=== PATIENT | female | born 1925 | race Caucasian/White ===

== ENCOUNTER 2017-01-25 14:39 | Inpatient (IN) | payer MEDICARE, OTHER ==
--- NOTE | 2017-01-25 15:32 | EDPHY ---
H & P Stated Complaint: ruq abd pain radiates into back Time Seen by Provider: 01/25/17 15:18 HPI/ROS: CHIEF COMPLAINT: Right lower chest and upper abdominal pain HISTORY OF PRESENT ILLNESS: The patient presents to the ED with a 3 day history of right lower chest and upper abdominal pain. The patient reports associated nausea. The patient has had a 1 year history of chronic mild dyspnea without an obvious etiology. She has a known hiatal hernia. The patient denies any fall or trauma. The patient has not had a history of right upper quadrant pain until the past 3 days. The patient has been taking a single tramadol each day for management of her pain. The patient reports no change in her chronic mild dyspnea. She denies asymmetric calf pain or swelling. The patient denies chest pain or shortness of breath. The patient has no history of fever, arthralgias or rash. The patient denies any prior abdominal surgical history. REVIEW OF SYSTEMS: A comprehensive 10 point review of systems is otherwise negative aside from elements mentioned in the history of present illness. Source: Patient Exam Limitations: No limitations - Personal History Current Tetanus/Diphtheria Vaccine: No - Medical/Surgical History Hx Asthma: No Hx Chronic Respiratory Disease: No Hx Diabetes: No Hx Cardiac Disease: No Hx Renal Disease: No Hx Cirrhosis: No Hx Alcoholism: No Hx HIV/AIDS: No Hx Splenectomy or Spleen Trauma: No Other PMH: arthritis - Social History Smoking Status: Never smoked - Physical Exam Exam: General Appearance: Alert, no distress Eyes: Pupils equal and round no pallor or injection ENT, Mouth: Mucous membranes moist Respiratory: Tenderness to palpation right lower chest wall, no subcutaneous emphysema Cardiovascular: Regular rate and rhythm Gastrointestinal: Tenderness to palpation right upper quadrant, mild in nature , no peritoneal signs Neurological: A&O, normal motor function, normal sensory exam, normal cranial nerves Skin: Warm and dry, no rashes Musculoskeletal: Neck is supple nontender Extremities: symmetrical, full range of motion Constitutional: Initial Vital Signs Temperature (C) 36.3 C 01/25/17 14:48 Heart Rate 74 01/25/17 14:48 Respiratory Rate 16 01/25/17 14:48 Blood Pressure 134/83 H 01/25/17 14:48 O2 Sat (%) 92 01/25/17 14:48 O2 Delivery Mode Room Air Allergies/Adverse Reactions: Penicillins Allergy (Verified 01/25/17 14:46) Sulfa (Sulfonamide Antibiotics) Allergy (Verified 01/25/17 14:46) Home Medications: Medication Instructions Recorded Atenolol [Tenormin 25 mg (*)] 25 mg PO DAILY 01/25/17 Bimatoprost 0.01% [Lumigan 0.01% 1 drop EACHEYE HS 01/25/17 (*)] Fluticasone Nasal [Flonase Nasal 1 spray NASAL DAILY PRN 01/25/17 Momence] Fluticasone/Vilanterol [Breo 1 puffs IH DAILY 01/25/17 Ellipta 100-25 Mcg INH] Levothyroxine Sodium 100 mcg PO DAILY06 01/25/17 [Levothyroxine Sodium] Simvastatin [Simvastatin] 10 mg PO HS 01/25/17 Valsartan [Valsartan] 80 mg PO DAILY@17 01/25/17 Vit A/Vit C/Vit E/Zinc/Copper 1 each PO DAILY 01/25/17 [Preservision Tablet] traMADol [Ultram 50 mg (*)] 50 mg PO DAILY PRN 01/25/17 Medical Decision Making - Diagnostics EKG Interpretation: EKG: Complete interpretation has been separately recorded in the [facility] archive. Summary impression: Sinus rhythm, rate 70 Imaging Results: Imaging Impressions Chest X-Ray 01/25/17 15:29 Impression: 1. Large hiatal hernia. 2. Eventration right hemidiaphragm with adjacent compressive atelectatic change suspected. Abdomen Ultrasound 01/25/17 16:36 Impression: 1. Distended gallbladder with gallstones as well as dilated common bile duct with distal choledocholithiasis. The patient is also tender over the gallbladder. Findings are suspicious for cholecystitis as well. 2. Incidental right renal cysts. Findings discussed with Gibson Peguero at 18:11 hour, 01/25/2017. Chest/Thorax CTA 01/25/17 16:37 Impression: 1. No evidence of pulmonary embolus using CT protocol. 2. Aberrant right subclavian artery. 3. Calcified granuloma right lower lobe with calcified right hilar nodes. 4. Distended gallbladder. 5. Large hiatal hernia. Findings discussed with Gibson Peguero at 1812 hour, 01/25/2017. ED Course/Re-evaluation: The patient presents the ED for evaluation of 3 days of right upper quadrant pain. The patient is also had a 1 year history of dyspnea which has been poorly characterized and attributed possibly to a hiatal hernia. Patient was noted to be quite tender right upper quadrant upon arrival. She is afebrile with stable vital signs. The patient was taken for right upper quadrant ultrasound which demonstrates evidence of cholecystitis and choledocholithiasis. The patient is noted to have an elevated bilirubin consistent with choledocholithiasis. The patient had an IV established. She was started on 1 g of IV Invanz. I consulted with Dr. Culver from General surgery. He has requested the patient be admitted to the hospitalist service with GI consultation. Consultation was made with Dr. Laguna at 6:00 p.m.. Consultation was made with Gastroenterology at 6:15 p.m.. They will see the patient tomorrow morning. The patient has had some chronic dyspnea which was evaluated with a D-dimer which was elevated. CT angiogram of the chest demonstrates no evidence of pulmonary embolism. I re-evaluated the patient at 7:20 p.m.. She continues to be normotensive, afebrile and with a normal heart rate. Differential Diagnosis: Differential diagnosis considered includes pancreatitis, cholecystitis, choledocholithiasis, pulmonary embolism, pneumonia, pleural effusion - Data Points Laboratory Results: Laboratory Results 01/25/17 15:18 01/25/17 15:18 01/25/17 01/25/17 01/25/17 15:18 15:18 15:18 WBC 15.75 10^3/uL H 10^3/uL (3.80-9.50) RBC 4.70 10^6/uL 10^6/uL (4.18-5.33) Hgb 15.4 g/dL g/dL (12.6-16.3) Hct 44.4 % % (38.0-47.0) MCV 94.5 fL fL (81.5-99.8) MCH 32.8 pg pg (27.9-34.1) MCHC 34.7 g/dL g/dL (32.4-36.7) RDW 12.5 % % (11.5-15.2) Plt Count 322 10^3/uL 10^3/uL (150-400) MPV 10.6 fL fL (8.7-11.7) Neut % (Auto) 86.4 % H % (39.3-74.2) Lymph % (Auto) 5.0 % L % (15.0-45.0) Leslie % (Auto) 7.6 % % (4.5-13.0) Eos % (Auto) 0.2 % L % (0.6-7.6) Baso % (Auto) 0.2 % L % (0.3-1.7) Nucleat RBC Rel Count 0.0 % % (0.0-0.2) Absolute Neuts (auto) 13.61 10^3/uL H 10^3/uL (1.70-6.50) Absolute Lymphs (auto) 0.79 10^3/uL L 10^3/uL (1.00-3.00) Absolute Monos (auto) 1.20 10^3/uL H 10^3/uL (0.30-0.80) Absolute Eos (auto) 0.03 10^3/uL 10^3/uL (0.03-0.40) Absolute Basos (auto) 0.03 10^3/uL 10^3/uL (0.02-0.10) Absolute Nucleated RBC 0.00 10^3/uL 10^3/uL (0-0.01) Immature Gran % 0.6 % % (0.0-1.1) Immature Gran # 0.09 10^3/uL 10^3/uL (0.00-0.10) D-Dimer 3.59 ug/mLFEU H ug/mLFEU (0.00-0.50) Sodium 139 mEq/L mEq/L (134-144) Potassium 4.0 mEq/L mEq/L (3.5-5.2) Chloride 97 mEq/L mEq/L (97-110) Carbon Dioxide 26 mEq/l mEq/l (22-31) Anion Gap 16 mEq/L mEq/L (8-16) BUN 16 mg/dL mg/dL (7-23) Creatinine 1.0 mg/dL mg/dL (0.6-1.0) Estimated GFR 52 Glucose 138 mg/dL H mg/dL (70-100) Calcium 9.2 mg/dL mg/dL (8.5-10.4) Total Bilirubin 9.8 mg/dL H mg/dL (0.1-1.4) Conjugated Bilirubin 6.9 mg/dL H mg/dL (0.0-0.5) Unconjugated Bilirubin 2.9 mg/dL H mg/dL (0.0-1.1) AST 499 IU/L H IU/L (14-46) ALT 354 IU/L H IU/L (9-52) Alkaline Phosphatase 450 IU/L H IU/L (38-126) Total Protein 6.9 g/dL g/dL (6.3-8.2) Albumin 3.6 g/dL g/dL (3.5-5.0) Lipase > 95370 IU/L H IU/L (23-300) Medications Given: Discontinued Medications Ertapenem 1 gm/ Sodium (Chloride) 100 mls @ 200 mls/hr IV EDNOW ONE PRN Reason: Protocol Stop: 01/25/17 17:56 Last Admin: 01/25/17 18:31 Dose: 100 mls Morphine Sulfate (Morphine) 2 mg IVP EDNOW ONE Stop: 01/25/17 17:07 Last Admin: 01/25/17 17:07 Dose: 2 mg Departure - Departure Disposition: [facility] ([place], [place])s Inpatient Acute Clinical Impression: Choledocholithiasis, Cholecystitis, Pancreatitis Condition: Good
[2017-01-25 15:34] LABS: PLATELET COUNT 322 10^3/uL (150-400)
--- NOTE | 2017-01-25 15:46 | CPEKG ---
Heart Rate: 70 RR Interval: 857 P-R Interval: 168 QRSD Interval: 86 QT Interval: 416 QTC Interval: 449 P [place]: 51 QRS [place]: -32 T Wave [place]: 48 EKG Severity - ABNORMAL ECG - EKG Impression: SINUS RHYTHM EKG Impression: PROBABLE LEFT ATRIAL ABNORMALITY EKG Impression: LEFT AXIS DEVIATION EKG Impression: LEFT VENTRICULAR HYPERTROPHY Electronically Signed By: Gibson Peguero 25-Jan-2017 15:46:32
[2017-01-25] MEDS ORDERED: IOPAMIDOL (ISOVUE 370) 100 ML BTL IV ONE (17:03)
[2017-01-25] MEDS ORDERED: ERTAPENEM 1 GM in NS 100 ML IV ONE (17:27)
[2017-01-25] MEDS ORDERED: ONDANSETRON 4 MG/2 ML VIAL IVP PRN (19:30)
[2017-01-25] MEDS ORDERED: ACETAMINOPHEN 650 MG SUPP PR PRN (19:30)
[2017-01-25] MEDS ORDERED: NS 1,000 ML IV SCH (19:30)
[2017-01-25] MEDS ORDERED: FLUTICASONE NASAL 120 SPRAYS/16 GM MDI EACHNARE PRN (19:32)
[2017-01-25] MEDS ORDERED: PRAVASTATIN SODIUM 20 MG TAB PO SCH (21:00)
[2017-01-25] MEDS: BIMATOPROST 0.01% 2.5 ML OPHT.BTL EACHEYE SCH (22:01)
--- NOTE | 2017-01-25 22:52 | GHP ---
[f rep st] HISTORY AND PHYSICAL DATE OF ADMISSION: 01/25/2017 CHIEF COMPLAINT: Abdominal pain. HISTORY OF PRESENT ILLNESS: An 89-year-old female with a history of osteoarthritis, hypertension, hy perlipidemia and hypothyroidism, who presents with 3 days of intermittent right upper quadrant and ep igastric pain that she honestly thought was related to her ribs on the right until it became more per sistent and very severe. She did have some associated nausea today, the day of presentation, and has had some anorexia related to the discomfort. She does report in the past potentially having little episodes of what she described as potentially minimal rib pain in the past, never thinking much of it . The patient denies any subjective fevers or chills at home. Denies any diarrhea. Has a bladder s ling. Denies dysuria, denies hematuria, denies lower extremity edema. PAST MEDICAL HISTORY: 1. Osteoarthritis involving multiple joints. 2. Suspected gout. 3. Hypertension. 4. Hyperlipidemia. 5. Hypothyroidism. SOCIAL HISTORY: Patient lives independently. 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 Does not drink alcohol, illicit drugs or smoke tobacco. ADVANCE DIRECTIVES: She wishes to be full cor, full tube. Her daughter would be her medical decisio n maker. REVIEW OF SYSTEMS: A 10-point review of systems is negative with the exception of that reported in t he HPI. PHYSICAL EXAMINATION: VITAL SIGNS: Blood pressure 143/64, heart rate 72, respiratory rate 16, 91% o n room air, 36.5. GENERAL: This is a well-appearing elderly female, lying flat in bed. HEENT: Not able for moist mucous membranes. Eye exam is negative for any icterus. CARDIAC: Patient is regular rate and rhythm. PULMONARY: Clear to auscultation bilaterally, however, limited respiratory effort secondary to abdominal pain. GASTROINTESTINAL: Positive bowel sounds. Abdomen is soft. She is te nder to palpation in the right upper and epigastric area. No rebound or guarding. MUSCULOSKELETAL: Negative for any lower extremity edema. SKIN: Negative for any rashes. NEUROLOGIC: She is alert and oriented x3. PSYCHIATRIC: She is pleasant and cooperative on interview and examination. DATA: White count 15.7, hematocrit 44.4, platelets of 322. D-dimer 3.59. Glucose 138, total biliru bin 9.8, AST 499, ALT 354, alkaline phosphatase of 452. Creatinine 1.0. Ultrasound of the abdomen s hows distended gallbladder with gallstones as well as a dilated common bile duct with distal choledoc holithiasis. CTA of the chest, which I personally reviewed and interpreted, shows no pulmonary embol ism. Large hiatal hernia. EKG, which I personally reviewed and interpreted, shows sinus rhythm, lef t axis deviation, normal intervals. No acute ST-T changes. ASSESSMENT AND PLAN: This is an 89-year-old female presenting with abdominal pain. 1. Acute gallstone pancreatitis. Patient's lipase is greater than 20,000. There are stones visuali zed in the distended common bile duct. The patient is being admitted, made n.p.o., IV fluids are tayo ng initiated. Both Gastroenterology and General Surgery have been consulted. She will undergo ERCP in the morning and surgical consultation for cholecystectomy afterward. The patient is requiring IV pain medications for control. We will continue these in the inpatient setting. 2. Cholecystitis. Patient has an acute leukocytosis, common bile duct obstruction. She was given e rtapenem in the emergency department which will continue with her hospitalization. 3. Hypertension. Continue patient's home medications of valsartan and atenolol. 4. Hypothyroidism. Will continue her levothyroxine. 5. Hyperlipidemia. We will continue her pravastatin. 6. Prophylaxis. We will hold Lovenox in anticipation of ERCP tomorrow. Place SCDs. 7. Diet. N.p.o. with IV fluids. DISPOSITION: I expect greater than 2 midnights as the patient is nearly 89 years old presenting with acute gallstone pancreatitis and cholecystitis. I have discussed the case with the emergency room kurtis go. Patient will be triaged to the medical-surgical floor for care, GI consultation, IV antibi otics and pain medications. /[id number]/MODL
[2017-01-26 04:35] LABS: PLATELET COUNT 238 10^3/uL (150-400)
[2017-01-26] MEDS: LEVOTHYROXINE 100 MCG TAB PO SCH ×2 (04:39→08:00)
[2017-01-26] MEDS: ATENOLOL 25 MG TAB PO SCH (08:00)
[2017-01-26] MEDS: PRESERVISION AREDS2 FORMULA EYE VIT 1 EACH PO SCH (08:00)
--- NOTE | 2017-01-26 08:02 | PDMN ---
Medical Necessity Medical necessity: est los>2mn for acute gallstone pancreatitis with lipase >20, 000, and cholecystitis; requires ERCP, surgical and GI consults, IV pain meds, and IV abx; comorbid advanced age, htn, hld; per order and H&P 01/25/17
[2017-01-26] MEDS ORDERED: Fluticasone/Vilanterol [Breo Ellipta 100-25 Mcg Inh] IH SCH (09:00)
--- NOTE | 2017-01-26 09:19 | HOSPPROG ---
Hospitalist Progress Note Assessment/Plan: Gallstone pancreatitis - LFT's trending down. Personally reviewed and interpreted U/S which shows 3 stones in distal CBD with 10 mm dilatation. Discussed with GI, who will consult today regarding need for ERCP. Holding off for now to let pancreas cool off. -cont NPO, IVF's -GI to consult today re possible ERCP vs MRCP to see if she passes the stones Cholecystitis - will need cholecystectomy once recovered from above -surgery consulted -cont ertapenem -BCx's pending Hypertension - normotensive -hold atenolol for now to prevent hypotension in setting of acute infection with risk for sepsis Hyperlipidemia - hold statin with elevated LFT's Hypothyroid - cont LT4 Full code DVT PPLX - high risk, JULISSA Dispo - cont inpt Subjective: Pt feels better. Denies pain. Notes several year h/o what sounds like recurring biliary colic. No fevers. No N/V. Objective: Vital Signs Temp Pulse Resp BP Pulse Ox 36.4 C 68 16 130/59 H 92 01/26/17 08:00 01/26/17 08:00 01/26/17 08:00 01/26/17 08:00 01/26/17 08:00 Laboratory Results 01/26/17 04:23 01/26/17 04:23 - Physical Exam Constitutional: no apparent distress Eyes: PERRL Ears, Nose, Mouth, Throat: moist mucous membranes Cardiovascular: regular rate and rhythym Respiratory: no respiratory distress, clear to auscultation Gastrointestinal: normoactive bowel sounds, soft, non-tender abdomen Skin: warm Musculoskeletal: full muscle strength Neurologic: AAOx3 Psychiatric: interacting appropriately ICD10 Worksheet Patient Problems: Problems Problem Status Onset Cholecystitis Acute Choledocholithiasis Acute Pancreatitis Acute
[2017-01-26] MEDS ORDERED: NS W/ 20 KCl/L 1,000 ML IV SCH (09:30)
--- NOTE | 2017-01-26 12:43 | ASMTCMCOM ---
CM Note CM Note Notes: Chart reviewed. Per therapies, she is independent. She is to be seen per GI. May need ERCP. Needs TBD. CM to follow. Date Signed: 01/26/2017 12:42 PM Electronically Signed By:Yennifer Swenson RN
[2017-01-26] MEDS ORDERED: D5W 1/2 NS W/ 20 KCl/L 1,000 ML IV SCH (13:45)
--- NOTE | 2017-01-26 14:05 | GCON ---
[f rep st] CONSULTATION GI INPATIENT CONSULTATION DATE OF CONSULTATION: 01/26/2017 REFERRING PHYSICIAN: Jacklyn Weller MD CHIEF COMPLAINT: I was kindly requested to see the patient by Dr. Jacklyn Weller in consultation for a chief complaint of abnormal liver tests. HISTORY OF PRESENT ILLNESS: She is an 89-year-old white female, who presented to the hospital after 3 days of upper abdominal pain, with some nausea. Over the last year, she has had some episodes of right upper quadrant discomfort. She denies fever, rash. She denies weight loss. Workup included liver function tests, showing an AST of 499, ALT of 354, an alkaline phosphatase of 450 and a total bilirubin 9.8. Ultrasound showed a distended gallbladder with gallstones, and dilated common bile duct to 10 mm with 3 common bile duct stones seen. Today, she is feeling better, now without almost any pain whatsoever. Her liver tests have improved, but are still elevated. PAST MEDICAL HISTORY: 1. As above. 2. Thyroid disorder. 3. Elevated lipids. 4. Otherwise noncontributory. ALLERGIES: Include penicillin and sulfa. INPATIENT MEDICATIONS: Include Invanz, Synthroid, IV fluids, Diovan, statin, atenolol. SOCIAL HISTORY: Negative for alcohol abuse. Her daughter's mobile number is ( [phone]. FAMILY HISTORY: Negative for similar abdominal pain. REVIEW OF SYSTEMS: Positive pertinent review of systems as per my HPI. Otherwise, complete review of systems is negative. PHYSICAL EXAM: CONSTITUTIONAL: Nontoxic-appearing, pleasant woman. VITAL SIGNS: Stable. SKIN: Warm, dry. EYES: Pupils equal, round, and reactive to light and accommodation. EAR, NOSE, MOUTH AND THROAT: Oropharynx without masses, moist mucosa. GASTROINTESTINAL: Essentially no tenderness now. No masses felt. CARDIOVASCULAR: Normal S2, normal PMI. RESPIRATORY: Lungs clear to auscultation and percussion anteriorly. PSYCHIATRIC: Orientation, insight appropriate. NEUROLOGIC: Grossly nonfocal, cranial nerves grossly intact. MUSCULOSKELETAL: Strength grossly normal throughout, normal station. LABORATORIES: Include the above. CT angiogram showed a large hiatal hernia. White count initially 15.7 thousand, but now normal. Lipase on admission yesterday greater than 20,000. Normal electrolytes. Today, total bilirubin 5.4 , AST 220, ALT 230 and alkaline phosphatase 318. ASSESSMENT: Gallstone pancreatitis. Now, doing better, essentially pain-free. Although her liver tests have improved, with the fact that 3 filling defects were seen within her common bile duct on ultrasound, I doubt she will pass all of her common bile duct stones. PLAN: 1. Gentle clear liquids today, as she is now pain-free. 2. We will check her coags, and recheck her lipase tomorrow. 3. ERCP tomorrow. Certainly, with her age, thyroid disorder, elevated lipids, etc., she is at increased risk for this procedure. However, suspected benefits outweigh the risks, and suspect she would do well. 4. Recommend a surgical consultation, as I suspect she will need a laparoscopic cholecystectomy at some point. As per the hospitalist service. Thank you for allowing me to help in the management of this patient. /[id number]/MODL MTDD
[2017-01-26] MEDS ORDERED: ERTAPENEM 1 GM in NS 100 ML IV SCH (18:00)
[2017-01-26] MEDS: VALSARTAN 80 MG TAB PO SCH (18:09)
--- NOTE | 2017-01-26 19:42 | PDGENHP ---
History & Physical Chief Complaint: ABDOMINAL PAIN AND NAUSEA History of Present Illness: 89-YEAR-OLD FEMALE WHO PRESENTED WITH PROGRESSIVE ABDOMINAL PAIN AND NAUSEA. FOUND IN THE ER TO HAVE CHOLELITHIASIS AND CHOLEDOCHOLITHIASIS AND MARKEDLY ELEVATED LFTS WITH A BILIRUBIN OF 9.8. SHE ALSO HAS A LIPASE OF 20,000. NO HISTORY OF TRAUMA Pertinent Past, Social, Family History: PAST MEDICAL HISTORY: HYPERTENSION, HYPERLIPIDEMIA, VAGINAL HYSTERECTOMY. FAMILY HISTORY NONCONTRIBUTORY. REVIEW OF SYSTEMS NEGATIVE ON A FULL 10 POINT REVIEW OF SYSTEMS EXCEPT RELATED TO THE HPI. SHE SPECIFICALLY DOES NOT SMOKE. MEDICATIONS SEE LIST. ALLERGIES: PENICILLIN AND SULFA Relevant Physical Exam: GENERAL: DELIGHTFUL HEALTHY-APPEARING 89-YEAR-OLD FEMALE IN NO ACUTE DISTRESS, AFEBRILE. CHEST CLEAR AND SYMMETRIC. COR REGULAR RHYTHM. ABDOMEN: SOFT SLIGHTLY TENDER IN THE RIGHT UPPER QUADRANT WITH BOWEL SOUNDS AND NO MASSES AND NO HERNIAS. EXTREMITIES FULL RANGE OF MOTION FULL PULSES. NEUROLOGIC EXAM IS PHYSIOLOGIC. SKIN IS INTACT. HEENT: DESPITE ELEVATED BILIRUBIN SHE IS NOT APPEAR TO BE JAUNDICED, NO ADENOPATHY COMMON HIS NECK IS SUPPLE, NO THYROMEGALY Cardiorespiratory Assessment: IMPRESSION: GALLSTONE PANCREATITIS WITH CHOLEDOCHOLITHIASIS. PLAN: GI CONSULT FOR ERCP FOLLOWED WITH LAPAROSCOPIC CHOLECYSTECTOMY. RISKS AND OPTIONS BEEN FULLY DISCUSSED WITH THE PATIENT AND SHE WISHES TO PROCEED
[2017-01-26] MEDS: BIMATOPROST 0.01% 2.5 ML OPHT.BTL EACHEYE SCH (21:32)
[2017-01-27] MEDS: LEVOTHYROXINE 100 MCG TAB PO SCH (04:37)
[2017-01-27] MEDS ORDERED: hydrALAZINE 20 MG/ML VIAL IVP PRN (04:44)
[2017-01-27 05:17] LABS: INR 1.02 (0.83-1.16); PROTIME(PATIENT) 13.3 SEC (12.0-15.0)
[2017-01-27] MEDS: Fluticasone/Vilanterol [Breo Ellipta 100-25 Mcg Inh] IH SCH (09:41)
[2017-01-27] MEDS: ATENOLOL 25 MG TAB PO SCH (09:57)
[2017-01-27] MEDS: PRESERVISION AREDS2 FORMULA EYE VIT 1 EACH PO SCH (09:58)
--- NOTE | 2017-01-27 11:20 | HOSPPROG ---
Hospitalist Progress Note Assessment/Plan: Gallstone pancreatitis - LFT's trending down. Personally reviewed and interpreted U/S which shows 3 stones in distal CBD with 10 mm dilatation. Discussed with GI, who plans for ERCP today, pt NPO. -cont NPO, IVF's -ERCP today Cholecystitis - will need cholecystectomy once recovered from above -can de-escalate atbx from ertapenem to ceftriaxone / flagyl -surgery consulted and is following -BCx's not drawn on admission, will obtain now Hypertension - BP's up -cont outpt atenolol, losartan -prn hydralazine Hyperlipidemia - hold statin with elevated LFT's Hypothyroid - cont LT4 Full code DVT PPLX - high risk, JULISSA Dispo - cont inpt Subjective: Pt feels okay, no pain. No N/V. No fevers. She is NPO for procedure today. Objective: Vital Signs Temp Pulse Resp BP Pulse Ox 36.4 C 82 18 169/81 H 94 01/27/17 08:00 01/27/17 09:57 01/27/17 08:00 01/27/17 09:57 01/27/17 08:00 Laboratory Results 01/27/17 04:19 01/27/17 04:19 01/26/17 01/27/17 01/28/17 05:59 05:59 05:59 Intake Total 1450 Balance 1450 PT 13.3 SEC (12.0-15.0) 01/27/17 04:19 INR 1.02 (0.83-1.16) 01/27/17 04:19 - Physical Exam Constitutional: no apparent distress Eyes: PERRL Ears, Nose, Mouth, Throat: moist mucous membranes Cardiovascular: regular rate and rhythym, no murmur, rub, or gallop Respiratory: no respiratory distress, clear to auscultation Gastrointestinal: normoactive bowel sounds, soft, non-tender abdomen Skin: warm Musculoskeletal: full muscle strength Neurologic: AAOx3 Psychiatric: interacting appropriately ICD10 Worksheet Patient Problems: Problems Problem Status Onset Cholecystitis Acute Choledocholithiasis Acute Pancreatitis Acute
[2017-01-27] MEDS ORDERED: GLUCAGON HCL 1 MG VIAL ONE (13:04)
[2017-01-27] MEDS ORDERED: IOTHALAMATE MEG (CONRAY) 50 ML VIAL IV ONE ×2 (13:06→14:41)
--- NOTE | 2017-01-27 13:35 | PDANEPAE ---
ANE History of Present Illness ercp ANE Past Medical History - Cardiovascular History Hx Hypertension: Yes Hx Arrhythmias: No Hx Chest Pain: No Hx Coronary Artery / Peripheral Vascular Disease: No Hx CHF / Valvular Disease: Yes - Pulmonary History Hx COPD: No Hx Asthma/Reactive Airway Disease: No Hx Recent Upper Respiratory Infection: No Hx Oxygen in Use at Home: Yes O2 in Use at Home (L/minute): 2 Hx Sleep Apnea: No Sleep Apnea Screening Result - Last Documented: Negative - Neurologic History Hx Cerebrovascular Accident: No Hx Seizures: No Hx Dementia: No - Endocrine History Hx Diabetes: No - Renal History Hx Renal Disorders: No - Liver History Hx Hepatic Disorders: No - Chronic Pain History Chronic Pain: No ANE Review of Systems Review of Systems: - Exercise capacity METS (RN): 3 METS ANE Patient History - Allergies Allergies/Adverse Reactions: Penicillins Allergy (Verified 01/25/17 14:46) Sulfa (Sulfonamide Antibiotics) Allergy (Verified 01/25/17 14:46) - Home Medications Home Medications: Atenolol [Tenormin 25 mg (*)] 25 mg PO DAILY 01/25/17 [Last Taken 01/25/17] Bimatoprost 0.01% [Lumigan 0.01% (*)] 1 drop EACHEYE HS 01/25/17 [Last Taken 07/07] Fluticasone Nasal [Flonase Nasal [place]] 1 spray NASAL DAILY PRN 01/25/17 [Last Taken Unknown] Fluticasone/Vilanterol [Breo Ellipta 100-25 Mcg INH] 1 puffs IH DAILY 01/25/17 [ Last Taken 01/25/17] Levothyroxine Sodium [Levothyroxine Sodium] 100 mcg PO DAILY06 01/25/17 [Last Taken 01/25/17] Simvastatin [Simvastatin] 10 mg PO HS 01/25/17 [Last Taken 01/24/17] Valsartan [Valsartan] 80 mg PO DAILY@17 01/25/17 [Last Taken 01/24/17] Vit A/Vit C/Vit E/Zinc/Copper [Preservision Tablet] 1 each PO DAILY 01/25/17 [ Last Taken 01/25/17] traMADol [Ultram 50 mg (*)] 50 mg PO DAILY PRN 01/25/17 [Last Taken 01/25/17] - NPO status NPO Since - Liquids (Date): 01/27/17 NPO Since - Liquids (Time): 00:00 NPO Since - Solids (Date): 01/27/17 NPO Since - Solids (Time): 00:00 - Anes Hx Anes Hx: post operative nausea and vomiting - Smoking Hx Smoking Status: Never smoked ANE Labs/Vital Signs - Labs Result Diagrams: 01/27/17 04:19 01/27/17 04:19 - Vital Signs Blood Pressure: 182/75 Heart Rate: 85 Respiratory Rate: 16 O2 Sat (%): 93 Height: 154.94 cm Weight: 68.039 kg ANE Physical Exam - Airway Mallampati Score: Class 2 Mouth exam: normal dental/mouth exam - Pulmonary Pulmonary: no respiratory distress - Cardiovascular Cardiovascular: regular rate and rhythym - ASA Status ASA Status: II ANE Anesthesia Plan Anesthesia Plan: general endotracheal anesthesia
[2017-01-27] MEDS ORDERED: fentaNYL 100 MCG/2 ML INJ ONE (13:37)
[2017-01-27] MEDS ORDERED: ROCURONIUM 50 MG/5 ML VIAL ONE (13:37)
[2017-01-27] MEDS ORDERED: DEXAMETHASONE 4 MG/ML VIAL ONE (13:37)
[2017-01-27] MEDS ORDERED: LIDOCAINE 2% 5 ML SDV ONE (13:37)
[2017-01-27] MEDS ORDERED: METOPROLOL TARTRATE 5 MG/5 ML INJ ONE (14:12)
[2017-01-27] MEDS ORDERED: SUGAMMADEX SODIUM 200 MG/2 ML VIAL IVP ONE (15:09)
[2017-01-27] MEDS ORDERED: INDOMETHACIN 50 MG SUPP PR ONE ×2 (15:19→15:24)
[2017-01-27] MEDS ORDERED: ALBUTEROL 3 ML DEYVIAL IH PRN (15:40)
[2017-01-27] MEDS ORDERED: NALOXONE HCL 0.4 MG/ML INJ IVP PRN (15:40)
[2017-01-27] MEDS ORDERED: fentaNYL 100 MCG/2 ML INJ IVP PRN (15:40)
[2017-01-27] MEDS ORDERED: ONDANSETRON 4 MG/2 ML VIAL IVP PRN (15:40)
--- NOTE | 2017-01-27 15:41 | POSTANESTH ---
Post Anesthetic Evaluation Cardiovascular Status: Normal, Stable Respiratory Status: Normal, Stable Level of Consciousness/Mental Status: Can Participate in Eval Pain Control: Adequate, Prn Tx Ordered Nausea/Vomiting Control: Adequate, Prn Tx Ordered Complications Possibly Related to Anesthesia: None Noted
--- NOTE | 2017-01-27 16:02 | GIREPORT ---
Formerly [facility], [facility] Surgical Services - Endoscopy Department Patient Name: Dari Pro Procedure Date: 01/27/2017 1:31 PM Patient Type: Inpatient Attending MD/ ER Physician: Beny Culp MD Procedure: ERCP Indications: Suspected bile duct stone(s) Providers: Beny Culp MD Referring MD: Jesse Culver MD; Hospitalist [facility] [place], [place]; Pascual Salas MD Medicines: Sedation Administered by an Anesthesia Professional Complications: No immediate complications. Description of Procedure: After obtaining informed consent, the scope was passed under direct vis ion. Throughout the procedure, the patient's blood pressure, pulse, and oxyg en saturations were monitored continuously. The Endoscope was introduced through the mouth, and advanced to the duodenum and used to inject cont rast into the bile duct. The Duodenalscope was introduced through the and advanced to the duodenum. Findings: Moderate H.H. Else, normal stomach. Ampulla within a diverticuli. Selective cbd cannulation achieved. Cholangiogram revealed three moderately-large stones. A 1.7 cm sphincterotomy was made at the 12 o'clock position. Then, using a 15-18 mm balloon, one stone was removed, approximately 1.2 cm in size. Then, multiple attempts were made to remove a second stone, which was l arger radiographically (with a central halo), about 1.3 cm in size. However, despite multiple balloon attempts, different angles and balloon sizes, there was too much resistance at the ampulla. At this point, the procedure had been 1.75 hours. With her age, recent pancreatitis, etc., it was elected to not pursue further therapies, suc h as basket, lithotripsy, etc., as with this, and then needing to remove her third stone, the risk seemed to high. Therefore, a 10 Fr 7 cm long bili priya stent was placed. Estimated Blood Loss: Estimated blood loss: none. Post Op Diagnosis: Three large cbd stones, as above. One removed, but the second too large for removal using a balloon, despite multiple attempts (see above). Recommendation: - for lap rossana - We will leave the stent in for six weeks, and begin Actigall. With th e latter, and the stone "banging" against the stent for six weeks, suspec t it will soften and fragment. As an outpt. in six weeks, we will then repea t her ERCP, removing the stent, and then suspect we can more safely remove th e two remaining stones. Until then, the stent will protect her cbd from block age. I will sign off. Upon discharge, please have her use Actigall 600 mg p. o. daily. We will arrange her repeat outpt. ERCP. Else, please call if we can be of further help [phone]). Thank you for allowing me to help in the management of this patient. Attending Participation: I personally performed the entire procedure. Suni Swan MD Beny Culp MD 01/27/2017 4:02:23 PM This report has been signed electronicallyPeter MD Suni Number of Addenda: 0 Note Initiated On: 01/27/2017 1:31 PM Total Procedure Duration Time 1 hour 19 minutes 10 seconds [email or web address]
--- NOTE | 2017-01-27 16:02 | GIREPORT ---
[facility] Surgical Services - Endoscopy Department Patient Name: Dari Pro Procedure Date: 01/27/2017 1:31 PM Patient Type: Inpatient Attending MD/ ER Physician: Beny Culp MD Procedure: ERCP Indications: Suspected bile duct stone(s) Providers: Beny Culp MD Referring MD: Jesse Culver MD; Hospitalist [facility] [place]; Pascual Salas MD Medicines: Sedation Administered by an Anesthesia Professional Complications: No immediate complications. Description of Procedure: After obtaining informed consent, the scope was passed under direct vis ion. Throughout the procedure, the patient's blood pressure, pulse, and oxyg en saturations were monitored continuously. The Endoscope was introduced through the mouth, and advanced to the duodenum and used to inject cont rast into the bile duct. The Duodenalscope was introduced through the and advanced to the duodenum. Findings: Moderate H.H. Else, normal stomach. Ampulla within a diverticuli. Selective cbd cannulation achieved. Cholangiogram revealed three moderately-large stones. A 1.7 cm sphincterotomy was made at the 12 o'clock position. Then, using a 15-18 mm balloon, one stone was removed, approximately 1.2 cm in size. Then, multiple attempts were made to remove a second stone, which was l arger radiographically (with a central halo), about 1.3 cm in size. However, despite multiple balloon attempts, different angles and balloon sizes, there was too much resistance at the ampulla. At this point, the procedure had been 1.75 hours. With her age, recent pancreatitis, etc., it was elected to not pursue further therapies, suc h as basket, lithotripsy, etc., as with this, and then needing to remove her third stone, the risk seemed to high. Therefore, a 10 Fr 7 cm long bili priya stent was placed. Estimated Blood Loss: Estimated blood loss: none. Post Op Diagnosis: Three large cbd stones, as above. One removed, but the second too large for removal using a balloon, despite multiple attempts (see above). Recommendation: - for lap rossana - We will leave the stent in for six weeks, and begin Actigall. With th e latter, and the stone "banging" against the stent for six weeks, suspec t it will soften and fragment. As an outpt. in six weeks, we will then repea t her ERCP, removing the stent, and then suspect we can more safely remove th e two remaining stones. Until then, the stent will protect her cbd from block age. I will sign off. Upon discharge, please have her use Actigall 600 mg p. o. daily. We will arrange her repeat outpt. ERCP. Else, please call if we can be of further help [phone]). Thank you for allowing me to help in the management of this patient. Attending Participation: I personally performed the entire procedure. Suni Swan MD Beny Culp MD 01/27/2017 4:02:23 PM This report has been signed electronicallyPeter MD Suni Number of Addenda: 0 Note Initiated On: 01/27/2017 1:31 PM Total Procedure Duration Time 1 hour 19 minutes 10 seconds [email or web address]
--- NOTE | 2017-01-27 16:02 | GIREPORT ---
[facility] Surgical Services - Endoscopy Department Patient Name: Dari Pro Procedure Date: 01/27/2017 1:31 PM Patient Type: Inpatient Attending MD/ ER Physician: Beny Culp MD Procedure: ERCP Indications: Suspected bile duct stone(s) Providers: Beny Culp MD Referring MD: Jesse Culver MD; Hospitalist [facility] [place]; Pascual Salas MD Medicines: Sedation Administered by an Anesthesia Professional Complications: No immediate complications. Description of Procedure: After obtaining informed consent, the scope was passed under direct vis ion. Throughout the procedure, the patient's blood pressure, pulse, and oxyg en saturations were monitored continuously. The Endoscope was introduced through the mouth, and advanced to the duodenum and used to inject cont rast into the bile duct. The Duodenalscope was introduced through the and advanced to the duodenum. Findings: Moderate H.H. Else, normal stomach. Ampulla within a diverticuli. Selective cbd cannulation achieved. Cholangiogram revealed three moderately-large stones. A 1.7 cm sphincterotomy was made at the 12 o'clock position. Then, using a 15-18 mm balloon, one stone was removed, approximately 1.2 cm in size. Then, multiple attempts were made to remove a second stone, which was l arger radiographically (with a central halo), about 1.3 cm in size. However, despite multiple balloon attempts, different angles and balloon sizes, there was too much resistance at the ampulla. At this point, the procedure had been 1.75 hours. With her age, recent pancreatitis, etc., it was elected to not pursue further therapies, suc h as basket, lithotripsy, etc., as with this, and then needing to remove her third stone, the risk seemed to high. Therefore, a 10 Fr 7 cm long bili priya stent was placed. Estimated Blood Loss: Estimated blood loss: none. Post Op Diagnosis: Three large cbd stones, as above. One removed, but the second too large for removal using a balloon, despite multiple attempts (see above). Recommendation: - for lap rossana - We will leave the stent in for six weeks, and begin Actigall. With th e latter, and the stone "banging" against the stent for six weeks, suspec t it will soften and fragment. As an outpt. in six weeks, we will then repea t her ERCP, removing the stent, and then suspect we can more safely remove th e two remaining stones. Until then, the stent will protect her cbd from block age. I will sign off. Upon discharge, please have her use Actigall 600 mg p. o. daily. We will arrange her repeat outpt. ERCP. Else, please call if we can be of further help [phone]). Thank you for allowing me to help in the management of this patient. Attending Participation: I personally performed the entire procedure. Suni Swan MD Beny Culp MD 01/27/2017 4:02:23 PM This report has been signed electronicallyPeter MD Suni Number of Addenda: 0 Note Initiated On: 01/27/2017 1:31 PM Total Procedure Duration Time 1 hour 19 minutes 10 seconds [email or web address]
--- NOTE | 2017-01-27 16:51 | SOAPPROG ---
SOAP Progress Note Assessment/Plan: Assessment/Plan: 89 F cholelithiasis, choledocholithiasis s/p ERCP c stent and partial stone retrieval. Patient seen s/p ERCP while in PACU. Comfortable, sleepy, with no complaints. Plan for lap rossana tomorrow. NPO p midnight. No chemical VTE ppx. Consent filled out and in chart. 01/27/17 16:49 Objective: Vital Signs Temp Pulse Resp BP Pulse Ox 36.5 C 85 16 182/75 H 93 01/27/17 16:40 01/27/17 13:35 01/27/17 13:35 01/27/17 13:35 01/27/17 13:35 Laboratory Results 01/27/17 04:19 01/27/17 04:19 01/26/17 01/27/17 01/28/17 05:59 05:59 05:59 Intake Total 1450 200 Output Total 5 Balance 1450 195 PT 13.3 SEC (12.0-15.0) 01/27/17 04:19 INR 1.02 (0.83-1.16) 01/27/17 04:19 ICD10 Worksheet Patient Problems: Problems Problem Status Onset Cholecystitis Acute Choledocholithiasis Acute Pancreatitis Acute
[2017-01-27] MEDS: VALSARTAN 80 MG TAB PO SCH (18:38)
[2017-01-27] MEDS: BIMATOPROST 0.01% 2.5 ML OPHT.BTL EACHEYE SCH (21:00)
[2017-01-28] MEDS: LEVOTHYROXINE 100 MCG TAB PO SCH (05:05)
[2017-01-28] MEDS ORDERED: ceFAZolin 1 GM/5 ML SYR ONE (07:27)
[2017-01-28] MEDS ORDERED: BUPIVACAINE 0.5% 30 ML SDV ONE (07:27)
[2017-01-28] MEDS ORDERED: HEPARIN 1000 UNIT/1 ML MDV ONE (07:27)
[2017-01-28] MEDS: ATENOLOL 25 MG TAB PO SCH (07:59)
[2017-01-28] MEDS: PRESERVISION AREDS2 FORMULA EYE VIT 1 EACH PO SCH (07:59)
[2017-01-28] MEDS: Fluticasone/Vilanterol [Breo Ellipta 100-25 Mcg Inh] IH SCH (08:44)
--- NOTE | 2017-01-28 11:46 | HOSPPROG ---
Hospitalist Progress Note Assessment/Plan: Gallstone pancreatitis - LFT's trending down. U/S with 3 stones in distal CBD with 10 mm dilatation. ERCP yesterday with 2 stones removed. However, Dr. Culp was unable to remove all the stones and due to duration of procedure a biliary stent was placed. -needs 6 week f/u with GI for repeat ERCP and stent removal Cholecystitis - NPO for cholecystectomy today per Dr. Culver -de-escalated atbx from ertapenem to ceftriaxone / flagyl, can probably d/c soon after surgery Hypertension - Fair control today. -cont outpt atenolol, losartan -prn hydralazine Hyperlipidemia - holding statin with elevated LFT's Hypothyroid - cont LT4 Diarrhea - check C diff Full code DVT PPLX - high risk, JULISSA Dispo - cont inpt Subjective: Pt doing well. No pain. No fevers. No complaints. Objective: Vital Signs Temp Pulse Resp BP Pulse Ox 36.7 C 63 14 151/65 H 95 01/28/17 11:44 01/28/17 11:44 01/28/17 11:44 01/28/17 11:44 01/28/17 11:44 Laboratory Results 01/27/17 04:19 01/28/17 04:34 01/27/17 01/28/17 01/29/17 05:59 05:59 05:59 Intake Total 1450 400 Output Total 5 100 Balance 1450 395 -100 PT 13.3 SEC (12.0-15.0) 01/27/17 04:19 INR 1.02 (0.83-1.16) 01/27/17 04:19 - Physical Exam Constitutional: no apparent distress Eyes: PERRL Ears, Nose, Mouth, Throat: moist mucous membranes Cardiovascular: regular rate and rhythym Respiratory: no respiratory distress, clear to auscultation Gastrointestinal: normoactive bowel sounds, soft, non-tender abdomen Skin: warm Musculoskeletal: full muscle strength Neurologic: AAOx3 Psychiatric: interacting appropriately ICD10 Worksheet Patient Problems: Problems Problem Status Onset Cholecystitis Acute Choledocholithiasis Acute Pancreatitis Acute
--- NOTE | 2017-01-28 12:18 | PDANEPAE ---
ANE History of Present Illness lexi rossana HANSEL Past Medical History - Cardiovascular History Hx Hypertension: Yes Hx Arrhythmias: No Hx Chest Pain: No Hx Coronary Artery / Peripheral Vascular Disease: No Hx CHF / Valvular Disease: Yes - Pulmonary History Hx COPD: No Hx Asthma/Reactive Airway Disease: No Hx Recent Upper Respiratory Infection: No Hx Oxygen in Use at Home: Yes O2 in Use at Home (L/minute): 2 Hx Sleep Apnea: No Sleep Apnea Screening Result - Last Documented: Negative - Neurologic History Hx Cerebrovascular Accident: No Hx Seizures: No Hx Dementia: No - Endocrine History Hx Diabetes: No - Renal History Hx Renal Disorders: No - Liver History Hx Hepatic Disorders: No - Chronic Pain History Chronic Pain: No ANE Review of Systems Review of Systems: - Exercise capacity METS (RN): 3 METS ANE Patient History - Allergies Allergies/Adverse Reactions: Penicillins Allergy (Verified 01/25/17 14:46) Sulfa (Sulfonamide Antibiotics) Allergy (Verified 01/25/17 14:46) - Home Medications Home Medications: Atenolol [Tenormin 25 mg (*)] 25 mg PO DAILY 01/25/17 [Last Taken 01/25/17] Bimatoprost 0.01% [Lumigan 0.01% (*)] 1 drop EACHEYE HS 01/25/17 [Last Taken 07/07] Fluticasone Nasal [Flonase Nasal [place]] 1 spray NASAL DAILY PRN 01/25/17 [Last Taken Unknown] Fluticasone/Vilanterol [Breo Ellipta 100-25 Mcg INH] 1 puffs IH DAILY 01/25/17 [ Last Taken 01/25/17] Levothyroxine Sodium [Levothyroxine Sodium] 100 mcg PO DAILY06 01/25/17 [Last Taken 01/25/17] Simvastatin [Simvastatin] 10 mg PO HS 01/25/17 [Last Taken 01/24/17] Valsartan [Valsartan] 80 mg PO DAILY@17 01/25/17 [Last Taken 01/24/17] Vit A/Vit C/Vit E/Zinc/Copper [Preservision Tablet] 1 each PO DAILY 01/25/17 [ Last Taken 01/25/17] traMADol [Ultram 50 mg (*)] 50 mg PO DAILY PRN 01/25/17 [Last Taken 01/25/17] - NPO status NPO Since - Liquids (Date): 01/28/17 NPO Since - Liquids (Time): 00:00 NPO Since - Solids (Date): 01/28/17 NPO Since - Solids (Time): 00:00 - Smoking Hx Smoking Status: Never smoked ANE Labs/Vital Signs - Labs Result Diagrams: 01/27/17 04:19 01/28/17 04:34 - Vital Signs Blood Pressure: 151/65 Heart Rate: 63 Respiratory Rate: 14 O2 Sat (%): 95 Height: 154.94 cm Weight: 68.039 kg ANE Physical Exam - Airway Mallampati Score: Class 2 Mouth exam: normal dental/mouth exam - Pulmonary Pulmonary: no respiratory distress - Cardiovascular Cardiovascular: regular rate and rhythym - ASA Status ASA Status: II ANE Anesthesia Plan Anesthesia Plan: general endotracheal anesthesia
[2017-01-28] MEDS ORDERED: LIDOCAINE 2% 5 ML SDV ONE (12:26)
[2017-01-28] MEDS ORDERED: ROCURONIUM 50 MG/5 ML VIAL ONE (12:26)
[2017-01-28] MEDS ORDERED: PROPOFOL 200 MG/20 ML VIAL ONE (12:26)
[2017-01-28] MEDS ORDERED: KETOROLAC 30 MG/1 ML SDV ONE (12:26)
[2017-01-28] MEDS ORDERED: LR 1,000 ML IV ONE (12:26)
[2017-01-28] MEDS ORDERED: ONDANSETRON 4 MG/2 ML VIAL ONE ×2 (12:26→14:10)
[2017-01-28] MEDS ORDERED: fentaNYL 100 MCG/2 ML INJ ONE ×2 (12:26→13:51)
[2017-01-28] MEDS ORDERED: DEXAMETHASONE 4 MG/ML VIAL ONE (12:26)
[2017-01-28] MEDS ORDERED: SUGAMMADEX SODIUM 200 MG/2 ML VIAL IVP ONE (12:52)
[2017-01-28] MEDS ORDERED: NALOXONE HCL 0.4 MG/ML INJ IVP PRN (13:46)
[2017-01-28] MEDS ORDERED: fentaNYL 100 MCG/2 ML INJ IVP PRN (13:46)
[2017-01-28] MEDS ORDERED: ALBUTEROL 3 ML DEYVIAL IH PRN (13:46)
--- NOTE | 2017-01-28 13:50 | POSTOPPROG ---
Post Op Note Date of Operation: 01/28/17 Surgeon: Jesse Culver General Car Supervisor Yard: Zahra Simmons Anesthesiologist: Beny Vasques Anesthesia: GET(General Endotracheal) Pre-op Diagnosis: cholelithiasis, choledocholithiasis, cholecystitis Post-op Diagnosis: same Procedure: lap rossana Findings: hydrops gallbladder with stones and adhesions Inf/Abcess present in the surg proc area at time of surgery?: Yes Depth: Organ Space EBL: 50-100 Complications: none Specimen(s): gallbladder to pathology
[2017-01-28] MEDS ORDERED: OXYCODONE/APAP 5/325 TAB ONE (14:10)
[2017-01-28] MEDS ORDERED: HYDROCODONE/APAP 5/325 TAB ONE (14:20)
[2017-01-28] MEDS: HYDROCODONE/APAP 5/325 TAB PO PRN ×2 (14:21→18:38)
[2017-01-28] MEDS: VALSARTAN 80 MG TAB PO SCH (17:45)
[2017-01-28] MEDS: BIMATOPROST 0.01% 2.5 ML OPHT.BTL EACHEYE SCH (21:53)
[2017-01-29] MEDS: HYDROCODONE/APAP 5/325 TAB PO PRN ×2 (03:27→09:38)
[2017-01-29] MEDS: LEVOTHYROXINE 100 MCG TAB PO SCH (05:32)
[2017-01-29] MEDS: Fluticasone/Vilanterol [Breo Ellipta 100-25 Mcg Inh] IH SCH (08:29)
[2017-01-29 08:39] VITALS: O2SAT 92
--- NOTE | 2017-01-29 09:03 | SOAPPROG ---
SOAP Progress Note Assessment/Plan: Assessment: 89yo female s/p lap rossana tolerating diet, minimal right flank pain when laying on that side PE Alert, comfortable, nonjaundiced Abdomen incisions clean/dry, soft nontender to palpation Plan: ok for d/c from surgery perspective saw pt with Dr Culver Pt understands needs GI follow-up 01/29/17 09:01 Objective: Vital Signs Temp Pulse Resp BP Pulse Ox 36.7 C 75 16 108/65 92 01/29/17 07:49 01/29/17 08:38 01/29/17 08:38 01/29/17 07:49 01/29/17 08:38 Laboratory Results 01/27/17 04:19 01/29/17 04:32 01/28/17 01/29/17 01/30/17 05:59 05:59 05:59 Intake Total 400 1310 100 Output Total 5 100 Balance 395 1210 100 PT 13.3 SEC (12.0-15.0) 01/27/17 04:19 INR 1.02 (0.83-1.16) 01/27/17 04:19 ICD10 Worksheet Patient Problems: Problems Problem Status Onset Cholecystitis Acute Choledocholithiasis Acute Pancreatitis Acute
[2017-01-29] MEDS: ATENOLOL 25 MG TAB PO SCH (09:38)
[2017-01-29] MEDS: PRESERVISION AREDS2 FORMULA EYE VIT 1 EACH PO SCH (10:59)
[2017-01-29 11:17] VITALS: BP 113/59; PULSE 74; RESP 18; TEMP 98.3
[2017-01-29] MEDS ORDERED: URSODIOL 300 MG CAP PO SCH (12:15)
--- NOTE | 2017-01-29 16:05 | ASMTCMCOM ---
CM Note CM Note Notes: Pt discharged home w/support of family, family will stay with her and help with ADLs. No homecare ordered, PT did not get a chance to eval. Date Signed: 01/29/2017 04:05 PM Electronically Signed By:Marisa Bahena RN
--- NOTE | 2017-01-29 20:43 | GDS ---
[f rep st] DISCHARGE SUMMARY DISCHARGE DIAGNOSES: 1. Gallstone pancreatitis. 2. Choledocholithiasis, status post endoscopic retrograde cholangiopancreatography with stent. 3. Hydrops gallbladder with adhesions, status post laparoscopic cholecystectomy. 4. Hypertension. HISTORY: The patient is an 89-year-old female, who presented with gallstone pancreatitis. She has s ignificantly elevated LFTs. She underwent ERCP and was found to have 3 stones in her common bile alvin t, and underwent ERCP where only 2 of the stones could be removed, and so a biliary stent was placed. Plan is 6 weeks' treatment with Actigall to soften it, so ERCP can be repeated in 6 weeks at which time, the stent can be removed and hopefully the remaining stones can be removed at that time. Until then, the stent will protect her from common bile duct blockage. After the ERCP, she went to surgery with Dr. Jesse Culver and had her gallbladder removed, where she was found to have hydrops gallbladder with extensive adhesions. Her initial lipase was greater than 20,000 but that did improve. Her LFTs were also significantly el evated with her initial bilirubin of 9.8, although that had come down to normal at time of discharge. Patient did remarkably well throughout all of this and is stable to go home, back to [facility]. DISCHARGE MEDICATIONS: Please see computerized record for full detailed list. New medication: Acti gall 600 mg p.o. daily. DISCHARGE INSTRUCTIONS: 1. Repeat ERCP in 6 weeks for stent and stone removal. 2. Follow up with Dr. Culver in 10 days. Greater than 30 minutes' time was spent arranging this discharge. Patient seen and examined by me on the day of discharge. /[id number]/MODL
--- NOTE | 2017-01-30 10:14 | ASDISCHSUM ---
Discharge Information Plan Status:Home with No Needs Medically Cleared to Leave: Discharge Date:01/29/2017 01:33 PM CM D/C Disposition:Home, Routine, Self-Care ADT D/C Disposition:Home, Routine, Self-Care Projected Discharge Date:01/29/2017 01:33 PM Transportation at D/C:Family Discharge Delay Reason: Follow-Up Date:01/29/2017 01:33 PM Discharge Slot: Final Diagnosis: Placement Information Patient Contact Information Contact Name:ALVIN Relationship: Address:[address] Work Phone: City:[place] Alternate Phone: [facility]/Zip Code:[place] [address] Email: Financial Information Financial Class:Medicare Advantage Plans Primary Plan Desc:[facility] ADVANTAGE PLANS Primary Plan Number:[id number] Secondary Plan Desc: Secondary Plan Number: Assessment Information LACE LACE Length of stay for Answers: 1 day current admission Acuity / Level of Care Answers: Was the patient admitted to hospital via the emergency department? Yes: Emergency dept visits in Answers: 1 last 6 months Score: 5 Date Signed: 01/26/2017 12:35 PM Electronically Signed By:Yennifer Swenson RN [facility] CM Progress Note CM Note CM Note Notes: Chart reviewed. Per therapies, she is independent. She is to be seen per GI. May need ERCP. Needs TBD. CM to follow. Date Signed: 01/26/2017 12:42 PM Electronically Signed By:Yennifer Swenson RN [facility] CM Progress Note CM Note CM Note Notes: Pt discharged home w/support of family, family will stay with her and help with ADLs. No homecare ordered, PT did not get a chance to eval. Date Signed: 01/29/2017 04:05 PM Electronically Signed By:Marisa Bahena RN Intervention Information
--- NOTE | 2017-01-30 10:14 | ASDISCHSUM ---
Discharge Information Plan Status:Home with No Needs Medically Cleared to Leave: Discharge Date:01/29/2017 01:33 PM CM D/C Disposition:Home, Routine, Self-Care ADT D/C Disposition:Home, Routine, Self-Care Projected Discharge Date:01/29/2017 01:33 PM Transportation at D/C:Family Discharge Delay Reason: Follow-Up Date:01/29/2017 01:33 PM Discharge Slot: Final Diagnosis: Placement Information Patient Contact Information Contact Name:ALVIN Relationship: Address:[address] Work Phone: City:[place] Alternate Phone: [facility]/Zip Code:[place] [address] Email: Financial Information Financial Class:Medicare Advantage Plans Primary Plan Desc:[facility] ADVANTAGE PLANS Primary Plan Number:[id number] Secondary Plan Desc: Secondary Plan Number: Assessment Information LACE LACE Length of stay for Answers: 1 day current admission Acuity / Level of Care Answers: Was the patient admitted to hospital via the emergency department? Yes: Emergency dept visits in Answers: 1 last 6 months Score: 5 Date Signed: 01/26/2017 12:35 PM Electronically Signed By:Yennifer Swenson RN [facility] CM Progress Note CM Note CM Note Notes: Chart reviewed. Per therapies, she is independent. She is to be seen per GI. May need ERCP. Needs TBD. CM to follow. Date Signed: 01/26/2017 12:42 PM Electronically Signed By:Yennifer Swenson RN [facility] CM Progress Note CM Note CM Note Notes: Pt discharged home w/support of family, family will stay with her and help with ADLs. No homecare ordered, PT did not get a chance to eval. Date Signed: 01/29/2017 04:05 PM Electronically Signed By:Marisa Bahena RN Intervention Information
--- NOTE | 2017-01-30 10:14 | ASDISCHSUM ---
Discharge Information Plan Status:Home with No Needs Medically Cleared to Leave: Discharge Date:01/29/2017 01:33 PM CM D/C Disposition:Home, Routine, Self-Care ADT D/C Disposition:Home, Routine, Self-Care Projected Discharge Date:01/29/2017 01:33 PM Transportation at D/C:Family Discharge Delay Reason: Follow-Up Date:01/29/2017 01:33 PM Discharge Slot: Final Diagnosis: Placement Information Patient Contact Information Contact Name:ALVIN Relationship: Address:[address] Work Phone: City:[place] Alternate Phone: [facility]/Zip Code:[place] [address] Email: Financial Information Financial Class:Medicare Advantage Plans Primary Plan Desc:[facility] ADVANTAGE PLANS Primary Plan Number:[id number] Secondary Plan Desc: Secondary Plan Number: Assessment Information LACE LACE Length of stay for Answers: 1 day current admission Acuity / Level of Care Answers: Was the patient admitted to hospital via the emergency department? Yes: Emergency dept visits in Answers: 1 last 6 months Score: 5 Date Signed: 01/26/2017 12:35 PM Electronically Signed By:Yennifer Swenson RN [facility] CM Progress Note CM Note CM Note Notes: Chart reviewed. Per therapies, she is independent. She is to be seen per GI. May need ERCP. Needs TBD. CM to follow. Date Signed: 01/26/2017 12:42 PM Electronically Signed By:Yennifer Swenson RN [facility] CM Progress Note CM Note CM Note Notes: Pt discharged home w/support of family, family will stay with her and help with ADLs. No homecare ordered, PT did not get a chance to eval. Date Signed: 01/29/2017 04:05 PM Electronically Signed By:Marisa Bahena RN Intervention Information
== END 2017-01-29 13:33 | disposition home or self-care (01) | DRG 417 ==
LOC: F3E 21:11
PROVIDERS: ADMIT Hospitalist; ATTEND Hospitalist
DX: K80.50 Calculus of bile duct without cholangitis or cholecystitis without obstruction (principal); K85.10 Biliary acute pancreatitis without necrosis or infection; K82.1 Hydrops of gallbladder; I10 Essential (primary) hypertension; E78.5 Hyperlipidemia, unspecified; E03.9 Hypothyroidism, unspecified; M10.9 Gout, unspecified; M19.90 Unspecified osteoarthritis, unspecified site
CPT/HCPCS: 96365; 97161-GP; 97165-GO; 97535-GO; C2625; G8978-GP-CI; G8979-GP-CI; G8987-GO-CI; G8988-GO-CI; J0171; J0360; J0696; J1100; J1335; J1610; J1885; J2405; J2704; J3010; Q9961; Q9967